=== PATIENT | female | born 1955 | race Caucasian/White ===

== ENCOUNTER → 2017-04-15 | Outpatient (CLI) | payer BC ==
[~2017-04-15] MED LIST: AZAT50TA PO; IMMURAN PO; LEVO25TA55 PO; LEVO50TA PO; THYR300T PO
--- NOTE | 2017-04-16 11:44 | RAD ---
DATE: 04/16/2017 EXAM: DIGITAL SCREEN BILAT W/CAD HISTORY: Routine screening COMPARISON: Previous study from 2013 This study was interpreted with the benefit of Computerized Aided Detection (CAD). FINDINGS: Breast density category B: There are scattered areas of fibroglandular density. The skin and nipples are within normal limits. No suspicious calcifications, spiculated masses or areas of architectural distortion. Scattered bilateral couple of intraparenchymal lymph nodes. IMPRESSION: No mammographic evidence of malignancy. No significant change when compared to previous mammogram from 2012. BI-RADS CATEGORY: 2 BENIGN FINDING(S) RECOMMENDED FOLLOW-UP: 12M 12 MONTH FOLLOW-UP PQRS compliance statement: Patient information was entered into a reminder system with a target due date 04/16/2018 for the next mammogram. Mammography is a sensitive method for finding small breast cancers, but it does not detect them all and is not a substitute for careful clinical examination. A negative mammogram does not negate a clinically suspicious finding and should not result in delay in biopsying a clinically suspicious abnormality. "Our facility is accredited by the [employer] Mammography Program."
== END | disposition home or self-care (01) ==
LOC: MAMMO 10:20
PROVIDERS: ATTEND Physician Assistant Medical
DX: Z12.31 Encounter for screening mammogram for malignant neoplasm of breast (principal)
CPT/HCPCS: 77063; G0202; 77067

== ENCOUNTER → 2018-02-04 | Outpatient (CLI) | payer BC ==
--- NOTE | 2018-02-04 09:35 | RAD ---
Chest, 2 views, 02/04/2018: HISTORY: Thoracic pain The heart size and pulmonary vascularity are normal. No pulmonary infiltrate is seen. There is no evidence of pleural fluid. There are only minimal scattered spurs in the spine. IMPRESSION: No acute cardiopulmonary abnormality is detected. Electronically signed by: Duc Monte MD (02/04/2018 9:32 AM) [facility]
== END | disposition home or self-care (01) ==
LOC: DXRAD 08:25
PROVIDERS: ATTEND Physician Assistant Medical
DX: M46.04 Spinal enthesopathy, thoracic region (principal); E03.9 Hypothyroidism, unspecified
CPT/HCPCS: 71046

== ENCOUNTER → 2018-05-02 | Outpatient (CLI) | payer BC ==
[2018-04-19 22:30] VITALS: BP 144/74
--- NOTE | 2018-05-02 12:21 | RAD ---
Carotid Doppler ultrasound INDICATION: TINNITUS OF LEFT EAR. COMPARISON: None are available TECHNIQUE: Color, grayscale and doppler ultrasound images obtained of the carotid system bilaterally. Percent stenosis is estimated using criteria that correlates with NASCET methodology. FINDINGS: Peak systolic velocities are as follows in cm/s: Right Carotid System: CCA PSV: 84 ICA PSV: 82 ICA EDV: 26 ECA PSV: 98 ICA/CCA Ratio 1.0 Right vertebral artery is patent with normal direction of flow. Mild plaque mainly in the common carotid artery. Left Carotid System: CCA PSV: 76 ICA PSV: 96 ICA EDV: 37 ECA PSV: 61 ICA/CCA Ratio 1.3 Left vertebral artery is patent with normal direction of flow. Mild plaque identified in the left common carotid artery. IMPRESSION: Mild plaque, but no evidence of hemodynamically significant stenosis. Electronically signed by: Vinayak Sheets MD (05/02/2018 12:17 PM) [id number]
== END | disposition home or self-care (01) ==
LOC: US 10:41
PROVIDERS: ATTEND Physician Assistant Medical
DX: H93.12 Tinnitus, left ear (principal); I65.23 Occlusion and stenosis of bilateral carotid arteries
CPT/HCPCS: 93880

== ENCOUNTER → 2018-05-11 | Outpatient (CLI) | payer BC ==
[2018-04-19 22:30] VITALS: BP 144/74
[~2018-05-11] MED LIST changes: +IOHEXOL 240 MG/ML 50ML VIAL. ONE; +IOHEXOL 240 MG/ML 50ML VIAL. PO ONE; +IOHEXOL 300 MG/ML 75 ML VIAL. IV ONE
--- NOTE | 2018-05-11 09:54 | RAD ---
PQRS Compliance Statement: One or more of the following individualized dose reduction techniques were utilized for this examination: 1. Automated exposure control 2. Adjustment of the mA and/or kV according to patient size 3. Use of iterative reconstruction technique CT chest, abdomen and pelvis with contrast May 11, 2018 INDICATION: Duodenal mass. COMPARISON: CT abdomen/pelvis June 10, 2013. TECHNIQUE: Multiple axial CT images of the chest, abdomen and pelvis were obtained after the intravenous administration of 75 cc Omnipaque 300. Coronal and sagittal reformats are provided. FINDINGS: CHEST: The thyroid gland is normal in appearance. There are no pathologically enlarged axillary, mediastinal or hilar lymph nodes. Heart size is within normal limits. There is no pericardial effusion. Thoracic aorta is normal in course and caliber. There is a 4 mm subpleural nodule in the posterior right upper lobe (series 4, image 15). There is a linear 5 mm subpleural nodule in the right middle lobe (series 4, image 42). There are no pleural effusions. There is no pulmonary vascular congestion or pneumothorax. No suspicious osseous lesion is identified within the thorax. Abdomen/pelvis: There is a 4 mm hypodense lesion in the anterior right hepatic lobe (series 7, image 31) small to characterize, however statistically favored to represent a simple cyst or hemangioma. Similar finding is identified in the inferior right hepatic lobe (segment ) measuring 3 mm. Spleen is nonenlarged. Adrenal glands are normal in appearance. Pancreas is normal in appearance. No intrahepatic or extrahepatic biliary ductal dilatation is identified. Gallbladder is surgically absent. Abdominal aorta is normal in course and caliber. There is a portacaval lymph node which measures 6 mm. No pathologically enlarged abdominal or pelvic lymph nodes are identified. There is no free fluid or free intraperitoneal air. There is stranding within the small bowel mesentery with shotty lymphadenopathy. Oral contrast was administered. There is masslike wall thickening within the fourth portion of the duodenum without evidence for bowel obstruction. Otherwise, opacified small bowel loops since her normal mucosal fold pattern. No evidence for bowel obstruction or inflammation. Appendix is not definitively visualized. There is a 4 mm calculus in the mid to superior pole the left kidney. Kidneys enhance symmetrically. There is no hydronephrosis. No suspicious renal mass. Urinary bladder is within normal limits given degree of distention. Uterus and adnexa are normal by CT. No suspicious osseous abnormality is identified. IMPRESSION: 1. There is masslike thickening of the duodenal wall involving the fourth portion the duodenum. There is stranding within the small bowel mesentery with nonenlarged lymphadenopathy. If not already biopsy-proven, primary consideration may be given for lymphoma. Alternatively, adenocarcinoma the duodenum may have similar appearance. 2. Subpleural pulmonary nodules within the right lung are likely benign given morphology and location. Attention on follow-up exams is recommended to ensure stability. No suspicious thoracic lymphadenopathy. Electronically signed by: Miguelina Moon MD (05/11/2018 9:49 AM) [id number]
== END | disposition home or self-care (01) ==
LOC: CT 07:59
PROVIDERS: ATTEND Internal Medicine Gastroenterology
DX: K31.89 Other diseases of stomach and duodenum (principal); K76.9 Liver disease, unspecified; N20.0 Calculus of kidney; R91.8 Other nonspecific abnormal finding of lung field; Z90.49 Acquired absence of other specified parts of digestive tract
CPT/HCPCS: 71260; 74177; Q9966; Q9967